=== PATIENT | female | born 1980 | race Caucasian/White ===

== ENCOUNTER 2016-05-23 18:40 | Emergency (ER) | payer BC, OTHER ==
[2016-05-23] MEDS ORDERED: AMOXICILLIN 250 MG CAP As Ordered ONE (22:44)
[2016-05-23] MEDS ORDERED: AMOXICILLIN 500 MG CAP As Ordered ONE (22:44)
--- NOTE | 2016-05-23 22:49 | EDDOCDS ---
Physician Documentation [facility] Name: Maria E Alvarez Age: 35 yrs Sex: Female : 1980 Arrival Date: 05/23/2016 Time: 18:40 Bed TR7 Private MD: NO PRIMARY PHYSICIAN, . Disposition: 05/23/16 22:41 Discharged to Home/Self Care. Impression: Acute gingivitis. - Condition is Stable. - Discharge Instructions: Dental Abscess, Gingivitis. - Prescriptions for Amoxicillin 875 mg Oral Tablet - take 1 tablet by ORAL route every 12 hours for 10 days; 20 tablet. - Medication Reconciliation, Local Pharmacy Hours form. - Follow up: Private Physician; When: Call to arrange an appointment; Reason: Recheck today's complaints, Continuance of care. Follow up: Emergency Department; When: As needed; Reason: Fever > 102F, Trouble breathing, Worsening of conditions. - Problem is new. - Symptoms are unchanged. Historical: - Allergies: no known allergies; - Home Meds: 1. Motrin 400 mg Oral tab as needed (Last dose: 05/23/2016 16:00) - PMHx: none; - PSHx: Adenoidectomy; Tonsillectomy; - Social history: Smoking status: Patient states was never smoker of tobacco. No barriers to communication noted, The patient speaks fluent Sammarinese, Speaks appropriately for age. - Family history: Not pertinent. - : The pt / caregiver states he / she is not on anticoagulants. Home medication list is obtained from the patient. - Exposure Risk Screening:: None identified. 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 4 in. (162.56 cm) (R); Pain 7/10; 22:44 BP 118 / 70; Pulse 69; Resp 18; Temp 97.6(O); Pulse Ox 98% on R/A; Pain 0/10; ct3 18:42 Body Mass Index 31.75 (83.91 kg, 162.56 cm) gr2 MDM: 22:02 [facility] Payment Agreement was scanned into [employer] and attached to record. gb 22:16 Financial registration complete. gb 22:42 Amoxicillin 500 mg PO once ordered. ar2 22:42 Amoxicillin 250 mg PO once ordered. ar2 22:47 Amoxicillin 500 mg PO once ordered. ld5 Administered Medications: 22:46 Drug: Amoxicillin 250 mg [amoxicillin 250 mg capsule (1 caps)] Route: PO; ld5 22:47 Drug: Amoxicillin 500 mg [amoxicillin 500 mg capsule (1 caps)] Route: PO; ld5 Signatures: Magalie Soto, Reg Reg gb Matt Weaver PA-C PAKelsi ar2 Mylene KhouryRN RN ld5 Yessy LarsonRN RN dsf The chart was reviewed and I authenticate all verbal orders and agree with the evaluation and treatment provided.Attachments: 22:02 [facility] Payment Agreement gb MTDD
--- NOTE | 2016-05-23 22:49 | EDDOCDS ---
Nurse's Notes [facility] Name: Maria E Alvarez Age: 35 yrs Sex: Female : 1980 Arrival Date: 05/23/2016 Time: 18:40 Bed TR7 Private MD: NO PRIMARY PHYSICIAN, . Diagnosis: Acute gingivitis Presentation: 05/23 18:52 Presenting complaint: Patient states: left abscessed tooth. Adult Sepsis Screening: The dsf patient does not have new or worsening altered mentation. Patient's respiratory rate is less than 22. Systolic blood pressure is greater than 100. Patient has a qSOFA score of 0- Negative Sepsis Screen. Suicide/Homicide risk assessment- the patient denies having any suicidal and/or homicidal ideations and does not present with any other emotional, behavioral or mental health complaints. Status: Patient is not a nutritional services director or dependent. Transition of care: patient was not received from another setting of care. 18:52 Acuity: ANNMARIE Level 5 dsf 18:52 Method Of Arrival: Walkin/Carried/Asstd dsf Triage Assessment: 18:53 General: Appears in no apparent distress, Behavior is appropriate for age, cooperative. dsf Pain: Location: left jaw Pain currently is 6 out of 10 on a pain scale. Quality of pain is described as throbbing. HIV screening NA for this visit Offered previously. EENT: Reports pain in left jaw. 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 Motrin 400 mg Oral tab as needed (Last dose: 05/23/2016 16:00) - PMHx: none; - PSHx: Adenoidectomy; Tonsillectomy; - Social history: Smoking status: Patient states was never smoker of tobacco. No barriers to communication noted, The patient speaks fluent Ecuadorean, Speaks appropriately for age. - Family history: Not pertinent. - : The pt / caregiver states he / she is not on anticoagulants. Home medication list is obtained from the patient. - Exposure Risk Screening:: None identified. Screenin:47 Screening information is obtained from the patient. Fall risk: No risks identified. ld5 Assistance ADL's: requires no assistance with activities of daily living. Abuse/DV Screen: The patient / caregiver reports he/she is: not in a situation that causes fear, pain or injury. Nutritional screening: No deficits noted. Advance Directives: There is no active DNR order. home support is adequate. Assessment: 22:47 General: Appears in no apparent distress, Behavior is cooperative. Pain: Location: left ld5 jaw. Neurological: Level of Consciousness is awake, alert. Respiratory: Airway is patent Respiratory effort is even, unlabored. Derm: Skin is intact, Skin is dry. Vital Signs: 18:42 BP 115 / 71; Pulse 68; Resp 18 S; Temp 97.9; Pulse Ox 100% on R/A; Weight 83.91 kg (R); gr2 Height 5 ft. 4 in. (162.56 cm) (R); Pain 7/10; 22:44 BP 118 / 70; Pulse 69; Resp 18; Temp 97.6(O); Pulse Ox 98% on R/A; Pain 0/10; ct3 18:42 Body Mass Index 31.75 (83.91 kg, 162.56 cm) gr2 Vitals: 18:42 Log In Time: May 23, 2016 at 18:42. gr2 ED Course: 18:41 Patient visited by Maggi Otero. gr2 18:41 Patient moved to Waiting gr2 18:42 NO PRIMARY PHYSICIAN, . is Private Physician. gr2 18:44 Patient visited by Maggi Otero. gr2 18:44 Patient moved to Pre RCE gr2 18:53 Triage Initiated dsf 21:44 Patient moved to Triage 2 ct3 22:00 Patient name changed from Maria E\S\A\S\Cuppernell\S\ to Maria E\S\Mary Jo\S\Cuppernell. EDMS 22:02 [facility] Payment Agreement was scanned into [employer] and attached to record. gb 22:11 Matt Weaver PA-C is PHCP. ar2 22:11 Jose Angel Carson DO is Attending Physician. ar2 22:11 Patient visited by Matt Weaver PA-C. ar2 22:45 Patient visited by Alda Flanagan PCA. ct3 22:46 Patient moved to TR7 ct3 22:47 The patient / caregiver is instructed regarding the plan of care and ED course. Patient ld5 has correct armband on for positive identification. 22:47 No IV's were initiated during this patient's visit. No procedures done that require ld5 assistance. 22:48 Patient visited by Mylene Khoury RN. ld5 Administered Medications: 22:46 Drug: Amoxicillin 250 mg [amoxicillin 250 mg capsule (1 caps)] Route: PO; ld5 22:47 Drug: Amoxicillin 500 mg [amoxicillin 500 mg capsule (1 caps)] Route: PO; ld5 Order Results: There are currently no results for this order. Outcome: 22:41 Discharge ordered by Provider. ar2 22:47 Discharge Assessment: Patient awake, alert and oriented x 3. No cognitive and/or ld5 functional deficits noted. Patient verbalized understanding of disposition instructions. patient administered narcotics - no. The following High Risk Discharge criteria are identified: None. Discharged to home ambulatory. Condition: stable. Discharge instructions given to patient, Instructed on discharge instructions, follow up and referral plans. medication usage, Demonstrated understanding of instructions, medications, Pt was receptive of discharge instructions/ teaching. Prescriptions given X 1. No special radiology studies were completed. Property :Personal belongings accompany Pt. 22:48 Patient left the ED. ld5 Signatures: Dispatcher [employer] EDMS Magalie Soto, Reg Reg gb Matt Weaver, PA-C PA-C ar2 Mylene Khoury,RN RN ld5 Alda Flanagan, IVAN LIQUOR BRIDGE OPERATOR HELPER ct3 Yessy Larson,RN RN dsf Maggi Otero gr2 MTDD
--- NOTE | 2016-05-25 23:49 | EDDOCDS ---
Physician Documentation [facility] Name: Maria E Alvarez Age: 35 yrs Sex: Female : 1980 Arrival Date: 05/23/2016 Time: 18:40 Bed TR7 Private MD: NO PRIMARY PHYSICIAN, . Disposition: 05/23/16 22:41 Discharged to Home/Self Care. Impression: Acute gingivitis. - Condition is Stable. - Discharge Instructions: Dental Abscess, Gingivitis. - Prescriptions for Amoxicillin 875 mg Oral Tablet - take 1 tablet by ORAL route every 12 hours for 10 days; 20 tablet. - Medication Reconciliation, Local Pharmacy Hours form. - Follow up: Private Physician; When: Call to arrange an appointment; Reason: Recheck today's complaints, Continuance of care. Follow up: Emergency Department; When: As needed; Reason: Fever > 102F, Trouble breathing, Worsening of conditions. - Problem is new. - Symptoms are unchanged. Historical: - Allergies: no known allergies; - Home Meds: 1. Motrin 400 mg Oral tab as needed (Last dose: 05/23/2016 16:00) - PMHx: none; - PSHx: Adenoidectomy; Tonsillectomy; - Social history: Smoking status: Patient states was never smoker of tobacco. No barriers to communication noted, The patient speaks fluent Czech, Speaks appropriately for age. - Family history: Not pertinent. - : The pt / caregiver states he / she is not on anticoagulants. Home medication list is obtained from the patient. - Exposure Risk Screening:: None identified. 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 4 in. (162.56 cm) (R); Pain 7/10; 22:44 BP 118 / 70; Pulse 69; Resp 18; Temp 97.6(O); Pulse Ox 98% on R/A; Pain 0/10; ct3 18:42 Body Mass Index 31.75 (83.91 kg, 162.56 cm) gr2 MDM: 22:02 [facility] Payment Agreement was scanned into [employer] and attached to record. gb 22:16 Financial registration complete. gb 22:42 Amoxicillin 500 mg PO once ordered. ar2 22:42 Amoxicillin 250 mg PO once ordered. ar2 22:47 Amoxicillin 500 mg PO once ordered. ld5 05/24 12:14 T-Sheet-- Draft Copy was scanned into [employer] and attached to record. lg Administered Medications: 05/23 22:46 Drug: Amoxicillin 250 mg [amoxicillin 250 mg capsule (1 caps)] Route: PO; ld5 22:47 Drug: Amoxicillin 500 mg [amoxicillin 500 mg capsule (1 caps)] Route: PO; ld5 Signatures: Magalie Soto, Reg Reg gb Carlos Manuel Lion, Reg Reg lg Matt Weaver PA-C PA-C ar2 Mylene Khoury,RN RN ld5 Yessy LarsonRN RN dsf The chart was reviewed and I authenticate all verbal orders and agree with the evaluation and treatment provided.Attachments: 22:02 [facility] Payment Agreement gb 05/24 12:14 T-Sheet-- Draft Copy lg Chart Complete MTDD
--- NOTE | 2016-05-25 23:49 | EDDOCDS ---
Nurse's Notes [facility] Name: Maria E Alvarez Age: 35 yrs Sex: Female : 1980 Arrival Date: 05/23/2016 Time: 18:40 Bed TR7 Private MD: NO PRIMARY PHYSICIAN, . Diagnosis: Acute gingivitis Presentation: 05/23 18:52 Presenting complaint: Patient states: left abscessed tooth. Adult Sepsis Screening: The dsf patient does not have new or worsening altered mentation. Patient's respiratory rate is less than 22. Systolic blood pressure is greater than 100. Patient has a qSOFA score of 0- Negative Sepsis Screen. Suicide/Homicide risk assessment- the patient denies having any suicidal and/or homicidal ideations and does not present with any other emotional, behavioral or mental health complaints. Status: Patient is not a ward service supervisor or dependent. Transition of care: patient was not received from another setting of care. 18:52 Acuity: ANNMARIE Level 5 dsf 18:52 Method Of Arrival: Walkin/Carried/Asstd dsf Triage Assessment: 18:53 General: Appears in no apparent distress, Behavior is appropriate for age, cooperative. dsf Pain: Location: left jaw Pain currently is 6 out of 10 on a pain scale. Quality of pain is described as throbbing. HIV screening NA for this visit Offered previously. EENT: Reports pain in left jaw. 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 Motrin 400 mg Oral tab as needed (Last dose: 05/23/2016 16:00) - PMHx: none; - PSHx: Adenoidectomy; Tonsillectomy; - Social history: Smoking status: Patient states was never smoker of tobacco. No barriers to communication noted, The patient speaks fluent Costa Rican, Speaks appropriately for age. - Family history: Not pertinent. - : The pt / caregiver states he / she is not on anticoagulants. Home medication list is obtained from the patient. - Exposure Risk Screening:: None identified. Screenin:47 Screening information is obtained from the patient. Fall risk: No risks identified. ld5 Assistance ADL's: requires no assistance with activities of daily living. Abuse/DV Screen: The patient / caregiver reports he/she is: not in a situation that causes fear, pain or injury. Nutritional screening: No deficits noted. Advance Directives: There is no active DNR order. home support is adequate. Assessment: 22:47 General: Appears in no apparent distress, Behavior is cooperative. Pain: Location: left ld5 jaw. Neurological: Level of Consciousness is awake, alert. Respiratory: Airway is patent Respiratory effort is even, unlabored. Derm: Skin is intact, Skin is dry. Vital Signs: 18:42 BP 115 / 71; Pulse 68; Resp 18 S; Temp 97.9; Pulse Ox 100% on R/A; Weight 83.91 kg (R); gr2 Height 5 ft. 4 in. (162.56 cm) (R); Pain 7/10; 22:44 BP 118 / 70; Pulse 69; Resp 18; Temp 97.6(O); Pulse Ox 98% on R/A; Pain 0/10; ct3 18:42 Body Mass Index 31.75 (83.91 kg, 162.56 cm) gr2 Vitals: 18:42 Log In Time: May 23, 2016 at 18:42. gr2 ED Course: 18:41 Patient visited by Maggi Otero. gr2 18:41 Patient moved to Waiting gr2 18:42 NO PRIMARY PHYSICIAN, . is Private Physician. gr2 18:44 Patient visited by Maggi Otero. gr2 18:44 Patient moved to Pre RCE gr2 18:53 Triage Initiated dsf 21:44 Patient moved to Triage 2 ct3 22:00 Patient name changed from Maria E\S\A\S\Cuppernell\S\ to Maria E\S\Mary Jo\S\Cuppernell. EDMS 22:02 [facility] Payment Agreement was scanned into [employer] and attached to record. gb 22:11 Matt Weaver PA-C is PHCP. ar2 22:11 Jose Angel Carson DO is Attending Physician. ar2 22:11 Patient visited by Matt Weaver PA-C. ar2 22:45 Patient visited by Alda Flanagan PCA. ct3 22:46 Patient moved to TR7 ct3 22:47 The patient / caregiver is instructed regarding the plan of care and ED course. Patient ld5 has correct armband on for positive identification. 22:47 No IV's were initiated during this patient's visit. No procedures done that require ld5 assistance. 22:48 Patient visited by Mylene Khoury RN. ld5 05/24 12:14 T-Sheet-- Draft Copy was scanned into [employer] and attached to record. lg Administered Medications: 05/23 22:46 Drug: Amoxicillin 250 mg [amoxicillin 250 mg capsule (1 caps)] Route: PO; ld5 22:47 Drug: Amoxicillin 500 mg [amoxicillin 500 mg capsule (1 caps)] Route: PO; ld5 Order Results: There are currently no results for this order. Outcome: 22:41 Discharge ordered by Provider. ar2 22:47 Discharge Assessment: Patient awake, alert and oriented x 3. No cognitive and/or ld5 functional deficits noted. Patient verbalized understanding of disposition instructions. patient administered narcotics - no. The following High Risk Discharge criteria are identified: None. Discharged to home ambulatory. Condition: stable. Discharge instructions given to patient, Instructed on discharge instructions, follow up and referral plans. medication usage, Demonstrated understanding of instructions, medications, Pt was receptive of discharge instructions/ teaching. Prescriptions given X 1. No special radiology studies were completed. Property :Personal belongings accompany Pt. 22:48 Patient left the ED. ld5 Signatures: [facility] Magalie Soto, Reg Reg gb Carlos Manuel Lion, Reg Reg lg Matt Weaver, PA-C PA-C ar2 Mylene Khoury,RN RN ld5 Alda Flanagan, PROFESSOR OF VIOLIN PROFESSOR OF VIOLIN ct3 Yessy Larson RN RN ds Maggi Otero gr2 Chart Complete MTDD
--- NOTE | 2016-05-25 23:49 | EDDOCDS ---
Physician Documentation [facility] Name: Maria E Alvarez Age: 35 yrs Sex: Female : 1980 Arrival Date: 05/23/2016 Time: 18:40 Bed TR7 Private MD: NO PRIMARY PHYSICIAN, . Disposition: 05/23/16 22:41 Discharged to Home/Self Care. Impression: Acute gingivitis. - Condition is Stable. - Discharge Instructions: Dental Abscess, Gingivitis. - Prescriptions for Amoxicillin 875 mg Oral Tablet - take 1 tablet by ORAL route every 12 hours for 10 days; 20 tablet. - Medication Reconciliation, Local Pharmacy Hours form. - Follow up: Private Physician; When: Call to arrange an appointment; Reason: Recheck today's complaints, Continuance of care. Follow up: Emergency Department; When: As needed; Reason: Fever > 102F, Trouble breathing, Worsening of conditions. - Problem is new. - Symptoms are unchanged. Historical: - Allergies: no known allergies; - Home Meds: 1. Motrin 400 mg Oral tab as needed (Last dose: 05/23/2016 16:00) - PMHx: none; - PSHx: Adenoidectomy; Tonsillectomy; - Social history: Smoking status: Patient states was never smoker of tobacco. No barriers to communication noted, The patient speaks fluent Ecuadorean, Speaks appropriately for age. - Family history: Not pertinent. - : The pt / caregiver states he / she is not on anticoagulants. Home medication list is obtained from the patient. - Exposure Risk Screening:: None identified. 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 4 in. (162.56 cm) (R); Pain 7/10; 22:44 BP 118 / 70; Pulse 69; Resp 18; Temp 97.6(O); Pulse Ox 98% on R/A; Pain 0/10; ct3 18:42 Body Mass Index 31.75 (83.91 kg, 162.56 cm) gr2 MDM: 22:02 [facility] Payment Agreement was scanned into [employer] and attached to record. gb 22:16 Financial registration complete. gb 22:42 Amoxicillin 500 mg PO once ordered. ar2 22:42 Amoxicillin 250 mg PO once ordered. ar2 22:47 Amoxicillin 500 mg PO once ordered. ld5 05/24 12:14 T-Sheet-- Draft Copy was scanned into [employer] and attached to record. lg Administered Medications: 05/23 22:46 Drug: Amoxicillin 250 mg [amoxicillin 250 mg capsule (1 caps)] Route: PO; ld5 22:47 Drug: Amoxicillin 500 mg [amoxicillin 500 mg capsule (1 caps)] Route: PO; ld5 Signatures: Magalie Soto, Reg Reg gb Carlos Manuel Lion, Reg Reg lg Matt Weaver PA-C PA-C ar2 Mylene Khoury,RN RN ld5 Yessy LarsonRN RN dsf The chart was reviewed and I authenticate all verbal orders and agree with the evaluation and treatment provided.Attachments: 22:02 [facility] Payment Agreement gb 05/24 12:14 T-Sheet-- Draft Copy lg Chart Complete MTDD
== END 2016-05-23 22:48 | disposition home or self-care (01) ==
LOC: M ED 18:40
DX: K05.00 Acute gingivitis, plaque induced (principal)